=== PATIENT | male | born 1985 | race Caucasian/White ===

== ENCOUNTER 2017-01-03 13:40 | Emergency (ER) | payer SELFPAY ==
[~2017-01-03] VITALS: Ht 172.7 cm; Wt 63.5 kg
[~2017-01-03 13:40] MED LIST: IBUP800T23 PO; METH750T2 PO; METHY5 PO; XANA0.5T PO
[2017-01-03 13:42] VITALS: BP 122/79; PULSE 71; RESP 13; TEMP 98.9; O2SAT 99
[2017-01-03] MEDS ORDERED: BACT800T5 PO (15:27)
[2017-01-03] MEDS ORDERED: LIDOCAINE 2%/EPINEPHrine 1:100,000 20ML MDV NERV BLOCK ONE (15:30)
--- NOTE | 2017-01-03 15:34 | PD ---
HPI Chief Complaint: Skin Problem Time Seen by Provider: 15:26 Travel History International Travel<30 days: No Contact w/Intl Traveler<30days: No Traveled to known affect area: No History of Present Illness HPI 31-year-old male presents the emergency department with swollen, painful, erythematous obvious superficial abscess to the right posterior heel. Patient has history of MRSA in the past. Patient states he thought was just a blister several days ago but has gotten worse in the past 2 days. His fever, chills, or other symptoms. He denies drainage. He states it was more swollen yesterday but he stated he stayed off it today, and THAT today the swelling has improved. Pain is 8/10 with ambulation. 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) Social History Alcohol Use: Yes (A FEW A WEEK) Tobacco Use: Yes (1 PPD) Substance Use: No Allergies-Medications (Allergen,Severity, Reaction): Coded Allergies: grass pollen (Unverified Allergy, Intermediate, sinusitus, 11/10/16) Reported Meds & Prescriptions Reported Meds & Active Scripts Active Bactrim DS (Sulfamethoxazole-Trimethoprim) 800-160 Mg Tab 1 Tab PO BID Methocarbamol 750 Mg Tab 750 Mg PO QID Ibuprofen 800 Mg Tab 800 Mg PO TID 10 Days Reported Xanax 0.5 mg (Alprazolam) Alprazolam 0.5 mg Tab 1 Tab PO DIRECTED Ritalin (Methylphenidate HCl) 5 Mg Tab 1 Tab PO BID Review of Systems Except as stated in HPI: all other systems reviewed are Neg General / Constitutional: No: Fever Eyes: No: Visual changes HENT: No: Headaches Cardiovascular: No: Chest Pain or Discomfort Respiratory: No: Shortness of Breath Gastrointestinal: No: Abdominal Pain Genitourinary: No: Dysuria Musculoskeletal: No: Pain Skin: No Rash Neurologic: No: Weakness Psychiatric: No: Depression Endocrine: No: Polydipsia Hematologic/Lymphatic: No: Easy Bruising Physical Exam Narrative GENERAL: Patient appears nonacute distress. SKIN: Warm and dry. Patient appears to have an infected blister to the right posterior heel just below the insertion site of the Achilles. There is no streaking. There is localized erythema and pointing. No spontaneous drainage is noted. HEAD: Atraumatic. Normocephalic. EYES: Pupils equal and round. No scleral icterus. No injection or drainage. ENT: No nasal bleeding or discharge. Mucous membranes pink and moist. Pharynx is clear. Airway is patent. NECK: Trachea midline. Supple nontender. CARDIOVASCULAR: Regular rate and rhythm. RESPIRATORY: No accessory muscle use. Clear to auscultation. Breath sounds equal bilaterally. MUSCULOSKELETAL: Extremities without clubbing, cyanosis, or edema. No obvious deformities. NEUROLOGICAL: Awake and alert. No obvious cranial nerve deficits. Motor grossly within normal limits. Five out of 5 muscle strength in the arms and legs. Normal speech. PSYCHIATRIC: Appropriate mood and affect; insight and judgment normal. Data Data Last Documented VS Vital Signs Date Time Temp Pulse Resp B/P (MAP) Pulse Ox O2 Delivery O2 Flow Rate FiO2 01/03/17 13:42 98.9 71 13 122/79 (93) 99 Orders Orders Lidocai-Epi 2%-1:100,000 Inj (Xylocaine- (01/03/17 15:30) Abscess Culture And Gram Stain (01/03/17 15:27) MDM Medical Decision Making Medical Screen Exam Complete: Yes Emergency Medical Condition: Yes Differential Diagnosis Cellulitis. Abscess. MRSA. Narrative Course I&D of the abscess is performed. Cultures sent to the lab. Dressing is applied and should be maintained for the next 2 days. Patient is placed on Bactrim DS twice a day 7 days. Patient take ibuprofen and Tylenol as needed. Work note was given for no enclosed shoes for the next week. Patient follow up with symptoms do not improve or worsen as needed. Procedures Procedure Narrative After the risks and benefits were discussed the following procedure was performed: INCISION AND DRAINAGE OF ABSCESS: The area was prepped and was sterilely draped. A subcutaneous wheal of 2% % Xylocaine with a total number 2 mL was used to anesthetize the area. The area was properly anesthetized. A number 11 scalpel was used to make a 0.5-cm incision across the area of the abscess. Cultures were obtained. The abscess was drained. Sterile dressing applied. Diagnosis Primary Impression: Abscess of right heel Referrals: Primary Care Physician Patient Instructions: General Instructions Departure Forms: Work Release Special Instructions: No enclosed shoes to the right foot for one week. Additional Instructions: I&D of the abscess is performed. Cultures sent to the lab. Dressing is applied and should be maintained for the next 2 days. Patient is placed on Bactrim DS twice a day 7 days. Patient take ibuprofen and Tylenol as needed. Work note was given for no enclosed shoes for the next week. Patient follow up with symptoms do not improve or worsen as needed. Med/Other Pt SpecificInfo: Prescription(s) given Scripts Sulfamethoxazole-Trimethoprim (Bactrim DS) 800-160 Mg Tab 1 TAB PO BID for Infection, #14 TAB 0 Refills Prov: Berna Jalloh MD 01/03/17 Disposition: 01 DISCHARGE HOME Condition: Stable Geronimo Meeks Jan 03, 2017 15:34
== END 2017-01-03 15:52 | disposition home or self-care (01) ==
LOC: NEPK 13:40
DX: F17.210 Nicotine dependence, cigarettes, uncomplicated (principal); B95.61 Methicillin susceptible Staphylococcus aureus infection as the cause of diseases classified elsewhere
CPT/HCPCS: 10060; 86403; 87070; 87186; 87205

== ENCOUNTER 2017-03-21 11:32 | Emergency (ER) | payer SELFPAY ==
[~2017-03-21] VITALS: Ht 172.7 cm; Wt 65.0 kg
[~2017-03-21 11:32] MED LIST changes: +BACT800T5 PO
[2017-03-21 11:34] VITALS: BP 138/98; PULSE 71; RESP 12; TEMP 97.8; O2SAT 98
[2017-03-21] MEDS ORDERED: PERC10TA27 PO (11:45)
[2017-03-21] MEDS ORDERED: ADDE10 PO (11:45)
[2017-03-21] MEDS ORDERED: CELE40TA PO (11:47)
[2017-03-21] MEDS ORDERED: IBUP1TAB7 PO (12:07)
[2017-03-21] MEDS ORDERED: ZOFR4TAB PO (12:07)
[2017-03-21] MEDS ORDERED: CLIN300C5 PO (12:07)
--- NOTE | 2017-03-21 12:16 | PD ---
HPI . Dental infection Chief Complaint: Oral / Dental Pain or Problem Time Seen by Provider: 11:52 Travel History International Travel<30 days: No Contact w/Intl Traveler<30days: No Traveled to known affect area: No History of Present Illness HPI This patient presents with the chief complaint of a dental infection. He states that he's been having problems with his teeth but they just seem to become infected yesterday. He reports pain involving a right upper and right lower molar. Also reports a foul taste in his mouth which is making him sick to his stomach. He has treated it at home with warm salt water gargles, Listerine and peroxide swishes. He rates his pain 4/10. No modifiers. 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) Social History Alcohol Use: Yes (A FEW A WEEK) Tobacco Use: Yes (1 PPD) Substance Use: No Allergies-Medications (Allergen,Severity, Reaction): Coded Allergies: grass pollen (Unverified Allergy, Intermediate, sinusitus, 03/21/17) Reported Meds & Prescriptions Reported Meds & Active Scripts Active Zofran (Ondansetron HCl) 4 Mg Tab 4 Mg PO Q6HR PRN Ibuprofen 800 Mg Tab 800 Mg PO Q8H PRN Clindamycin (Clindamycin HCl) 300 Mg Cap 300 Mg PO TID Bactrim DS (Sulfamethoxazole-Trimethoprim) 800-160 Mg Tab 1 Tab PO BID Reported Celexa (Citalopram Hydrobromide) 40 Mg Tab 40 Mg PO DAILY Percocet (Oxycodone-Acetaminophen) 10-325 mg Tab 1 Tab PO Q4H PRN Adderall (Amphetamine-Dextroamphetamine) 10 Mg Tab 10 Mg PO BID Avoid late evening doses. Space doses at least 4 to 6 hours if more than once/day dosing. Review of Systems Except as stated in HPI: all other systems reviewed are Neg General / Constitutional: No: Fever, Chills HENT: Positive: Dental Difficulties Gastrointestinal: Positive: Nausea Physical Exam Narrative GENERAL: Awake and alert and in no acute distress. SKIN: Warm and dry. HEAD: Normocephalic/atraumatic. No facial swelling. EYES: Pupils are equal. Extraocular movements are intact. ENT: His right mandibular and maxillary molars are broken with sharp edges. He has recently switched with peroxide and there is bubbling in the teeth. NECK: Normal range of motion. No cervical lymphadenopathy. CARDIOVASCULAR: Regular rate and rhythm. RESPIRATORY: Nonlabored respirations. MUSCULOSKELETAL: Atraumatic. NEUROLOGICAL: Nonfocal. PSYCHIATRIC: Appropriate mood and affect. Data Data Last Documented VS Vital Signs Date Time Temp Pulse Resp B/P (MAP) Pulse Ox O2 Delivery O2 Flow Rate FiO2 03/21/17 11:47 19 03/21/17 11:34 97.8 71 138/98 (111) 98 Orders Orders Ed Discharge Order (03/21/17 12:08) [facility] Medical Decision Making Medical Screen Exam Complete: Yes Emergency Medical Condition: Yes Differential Diagnosis Differential diagnosis of a toothache includes but is not limited to dental caries, dental abscess, gingivitis, drug-seeking behavior. Narrative Course This patient presents with dental pain and foul drainage from his molars on the right side, both upper and lower. He has treated himself appropriately at home prior to arrival. He will be discharged on clindamycin and Phenergan and Zofran. Diagnosis Primary Impression: Dental infection Patient Instructions: General Instructions Departure Forms: Tests/Procedures Additional Instructions: Follow up with a dentist. Scripts Ondansetron (Zofran) 4 Mg Tab 4 MG PO Q6HR Y for NAUSEA OR VOMITING, #10 TAB 0 Refills Prov: Tri Adamson MD 03/21/17 Ibuprofen (Ibuprofen) 800 Mg Tab 800 MG PO Q8H Y for Pain/Inflammation, #60 TAB 0 Refills Prov: Tri Adamson MD 03/21/17 Clindamycin (Clindamycin) 300 Mg Cap 300 MG PO TID for Infection, #21 CAP 0 Refills Prov: Tri Adamson MD 03/21/17 Disposition: 01 DISCHARGE HOME Condition: Stable Tri Adamson MD Mar 21, 2017 12:16
== END 2017-03-21 12:24 | disposition home or self-care (01) ==
LOC: NEPD 11:32
DX: K04.7 Periapical abscess without sinus (principal); F17.200 Nicotine dependence, unspecified, uncomplicated
CPT/HCPCS: 99284

== ENCOUNTER 2017-03-24 10:47 | Emergency (ER) | payer SELFPAY ==
[~2017-03-24] VITALS: Ht 172.7 cm; Wt 66.0 kg
[~2017-03-24 10:47] MED LIST changes: +ADDE10 PO; +CELE40TA PO; +CLIN300C5 PO; +IBUP1TAB7 PO; -IBUP800T23 PO; -METH750T2 PO; -METHY5 PO; +PERC10TA27 PO; -XANA0.5T PO; +ZOFR4TAB PO
[2017-03-24 10:49] VITALS: BP 148/87; PULSE 106; RESP 18; TEMP 98; O2SAT 96
[2017-03-24] MEDS ORDERED: PENI500T PO (11:15)
--- NOTE | 2017-03-24 11:17 | PD ---
HPI Chief Complaint: GI Complaint Time Seen by Provider: 11:10 Travel History International Travel<30 days: No Contact w/Intl Traveler<30days: No Traveled to known affect area: No History of Present Illness HPI This patient complains of having a medication reaction to clindamycin. He was started on it for a tooth infection. 20 minutes after he takes it he gets some vague dizzy lightheaded and nauseous feelings. They resolve in an hour or so and then recur within next medication dose. He denies rash shortness of breath or swelling. 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) Social History Alcohol Use: Yes (A FEW A WEEK) Tobacco Use: Yes (1 PPD) Substance Use: No Allergies-Medications (Allergen,Severity, Reaction): Coded Allergies: grass pollen (Unverified Allergy, Intermediate, sinusitus, 03/21/17) Reported Meds & Prescriptions Reported Meds & Active Scripts Active Penicillin V Potassium 500 Mg Tab 500 Mg PO Q8H Zofran (Ondansetron HCl) 4 Mg Tab 4 Mg PO Q6HR PRN Ibuprofen 800 Mg Tab 800 Mg PO Q8H PRN Clindamycin (Clindamycin HCl) 300 Mg Cap 300 Mg PO TID Bactrim DS (Sulfamethoxazole-Trimethoprim) 800-160 Mg Tab 1 Tab PO BID Reported Celexa (Citalopram Hydrobromide) 40 Mg Tab 40 Mg PO DAILY Percocet (Oxycodone-Acetaminophen) 10-325 mg Tab 1 Tab PO Q4H PRN Adderall (Amphetamine-Dextroamphetamine) 10 Mg Tab 10 Mg PO BID Avoid late evening doses. Space doses at least 4 to 6 hours if more than once/day dosing. Review of Systems General / Constitutional: No: Fever HENT: No: Headaches Cardiovascular: No: Chest Pain or Discomfort Physical Exam Narrative GASTROINTESTINAL: Abdomen soft, non-tender, nondistended. Positive bowel sounds. No hepato-splenomegaly, or palpable masses. No guarding. RESPIRATORY: Respiratory effort unlabored, no retractions or use of accessory muscles. Breath sounds are clear and symmetric. 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 He is going to stop the clindamycin I'm going to substitute with some basic penicillin He should follow-up with a dentist Diagnosis Primary Impression: Medication side effect Qualified Codes: T88.7XXA - Unspecified adverse effect of drug or medicament, initial encounter Additional Instructions: The patient was advised to follow up with their dentist and return if they worsen. Med/Other Pt SpecificInfo: Prescription(s) given Scripts Penicillin V Potassium (Penicillin V Potassium) 500 Mg Tab 500 MG PO Q8H for Infection, #20 TAB 0 Refills Prov: Shashi Sandhu MD 03/24/17 Disposition: DISCHARGE HOME Condition: Stable Shashi Sandhu MD Mar 24, 2017 11:17
== END 2017-03-24 11:39 | disposition home or self-care (01) ==
LOC: NEPD 10:47
DX: R42 Dizziness and giddiness (principal); R11.0 Nausea; T36.8X5A Adverse effect of other systemic antibiotics, initial encounter
CPT/HCPCS: 99283

== ENCOUNTER 2017-08-16 10:48 | Emergency (ER) | payer SELFPAY ==
[~2017-08-16] VITALS: Ht 172.7 cm; Wt 64.0 kg
[~2017-08-16 10:48] MED LIST changes: +PENI500T PO
[2017-08-16 11:13] VITALS: BP 120/74; PULSE 90; RESP 20; TEMP 98.3; O2SAT 100
[2017-08-16] MEDS ORDERED: PENI500T PO (11:23)
--- NOTE | 2017-08-16 11:25 | PD ---
HPI Chief Complaint: Oral / Dental Pain or Problem Time Seen by Provider: 11:16 Travel History International Travel<30 days: No Contact w/Intl Traveler<30days: No Traveled to known affect area: No History of Present Illness HPI 31-year-old male presents the ED for evaluation of 3 day history of right-sided lower dental pain. Throbbing, no alleviating or exacerbating factors reported. Gradual onset. Patient endorses swelling and worsening pain overnight. Currently rated 3/10. He endorses chills and mild nausea. Endorses history of broken teeth in the area. Denies fever, sinus congestion, rhinorrhea, ear pain , sore throat, difficulty swallowing. He does not have a dentist. He treated at home with a Percocet. 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 Space doses at least 4 to 6 hours if more than once/day dosing. Review of Systems Except as stated in HPI: all other systems reviewed are Neg Physical Exam Narrative GENERAL: Well-nourished, well-developed white male in no acute distress. SKIN: Warm and dry. HEAD: Atraumatic. Mild facial edema of the right mandible. EYES: No scleral icterus. No injection or drainage. PERRLA. EOMI. ENT: [place] tympanic membranes bilaterally. Nasal mucosa is moist. Oropharynx without erythema, edema or exudate. DENTAL: No loose teeth. No malocclusion. Teeth 30 and 31 are broken with large dental caries. The surrounding gingiva is edematous and tender. No abscess noted. NECK: Supple, trachea midline. No JVD. Positive right-sided submandibular lymphadenopathy. CARDIOVASCULAR: Regular rate and rhythm without murmurs, gallops, or rubs. RESPIRATORY: Breath sounds clear and equal bilaterally. No accessory muscle use. GASTROINTESTINAL: Abdomen soft, non-tender, nondistended. + Bowel sounds MUSCULOSKELETAL: No cyanosis, or edema. Full, active range of motion. Strength 5/5. Neurovascularly intact. BACK: Nontender without obvious deformity. No CVA tenderness. Data Data Last Documented VS Vital Signs Date Time Temp Pulse Resp B/P (MAP) Pulse Ox O2 Delivery O2 Flow Rate FiO2 08/16/17 11:13 98.3 90 20 120/74 (89) 100 Orders Orders Ed Discharge Order (08/16/17 11:25) MDM Medical Decision Making Medical Screen Exam Complete: Yes Emergency Medical Condition: Yes Differential Diagnosis Dental caries versus dental abscess versus dental infection versus less likely peritonsillar abscess versus other Narrative Course 31-year-old male presents the ED for evaluation of 3 day history of right-sided lower dental pain. Patient endorses swelling and worsening pain overnight. Currently rated 3/10. He endorses chills and mild nausea. Endorses history of broken teeth in the area. Denies fever, sinus congestion, rhinorrhea, ear pain , sore throat, difficulty swallowing. He does not have a dentist. He treated at home with a Percocet. Patient afebrile on presentation. On exa T 30 and 31 are broken with large dental caries. There is erythema and tenderness of the surrounding gingiva. No drainable abscess noted. Positive right-sided submandibular LAD. Exam otherwise unremarkable. Patient's prescribed Penicillin VK 500 mg 4 times daily 7 days. He is provided with a list of outpatient dental resources. We discussed reasons to return to the ED. The patient is stable discharged home. Diagnosis Primary Impression: Dental infection Referrals: Dentist Additional Instructions: Rest, hydrate. Begin antibiotics today and take them until every pill is gone. Warm salt water gargles periodically during the course the day may also help to improve symptoms. Continue at home pain medications as previously prescribed. Follow-up with the dentist as discussed. Return to the ED for worsening symptoms or any urgent or emergent medical condition. Med/Other Pt SpecificInfo: Prescription(s) given Scripts Penicillin V Potassium (Penicillin V Potassium) 500 Mg Tab 500 MG PO Q6H for Infection for 7 Days, #28 TAB 0 Refills Prov: Shashi Sandhu MD 08/16/17 Disposition: 01 DISCHARGE HOME Condition: Stable Claudette Wallace August 16, 2017 11:24
== END 2017-08-16 11:42 | disposition home or self-care (01) ==
LOC: NEPK 10:48
DX: K04.7 Periapical abscess without sinus (principal); F90.9 Attention-deficit hyperactivity disorder, unspecified type; F17.200 Nicotine dependence, unspecified, uncomplicated
CPT/HCPCS: 99283